=== PATIENT | female | born 1975 | race Hispanic/Latino ===

== ENCOUNTER 2018-12-07 06:02 | Inpatient (IN) ==
[2018-12-07] MEDS ORDERED: PROCARDIA ONE ×2 (06:23)
--- NOTE | 2018-12-07 06:29 | PROVIDER DOCUMENTATION ---
HPI-Female /OB/Breast - General Chief Complaint: OB-Active Labor Stated Complaint: LABOR PAIN Time Seen by Provider: 12/07/18 06:22 Source: reports: lap runner Allergies/Adverse Reactions: Patient Allergies Allergy/AdvReac Type Severity Reaction Status Date / Time No Known Allergies Allergy Verified 12/07/18 06:28 - History of Present Illness-Female /OB Nature of Presenting Problem: Patient presents with contractions and back pain. She is a term with no care. Location of complaint: reports: suprapubic Radiation: reports: back Quality of Pain: reports: cramping Severity in ED: reports: moderate Onset/Duration: reports: 1-3 hours ago Timing: reports: still present Vaginal Symptoms: reports: no symptoms Vaginal Bleeding Amount: None Urinary Symptoms: reports: no symptoms Leakage of Fluid: none Sexual intercourse history: reports: Not Active Associated Symptoms: reports: denies symptoms Similar Symptoms Previously?: No Recently seen or treated by another doctor?: No - LMP/ History : 3 Para: 2 CURRENT Problems: pre-eclampsia (?) PREVIOUS Problems: reports: none Contractions/Pelvic Pain: reports: moderate Review of Systems - Adult - REVIEW OF SYSTEMS - ADULT ROS:: limited per condition Constitutional: reports: no symptoms reported Eyes: reports: no symptoms reported Ears, Nose, Mouth & Throat: reports: no symptoms reported Cardiovascular: reports: no symptoms reported Respiratory: reports: no symptoms reported Gastrointestinal: reports: no symptoms reported Genitourinary: reports: no symptoms reported Musculoskeletal: reports: no symptoms reported Integumentary: reports: no symptoms reported Neurological: reports: no symptoms reported Psychiatric: reports: no symptoms reported Endocrine: reports: no symptoms reported Hematologic/Lymphatic: reports: no symptoms reported Allergic/Immunologic: reports: no symptoms reported Past History - Adult - PAST MEDICAL HISTORY-ADULT Review of Records: reports: Nursing Assessment Review Cardiovascular: reports: HTN Physical Exam-General - CONSTITUTIONAL General Appearance: appears well, alert, mild distress - EYES Eyes: PERRL/EOMI - HEAD, EARS, NOSE, MOUTH & THROAT HENMT: normocephalic/atraumatic - NECK Neck: non-tender - RESPIRATORY Respiratory: chest non-tender - CARDIOVASCULAR Cardiovascular: normal peripheral pulses - GASTROINTESTINAL (ABDOMEN) Abdominal Exam: normal bowel sounds, soft (gravid) - LYMPHATIC Lymphatic: no adenopathy - MUSCULOSKELETAL Back Exam: normal inspection Extremity: normal range of motion, non-tender Progress - PLAN OF CARE/RESULTS Progress/Plan/Lab Results: Vital Signs - 8 hr 12/07/18 06:10 Temperature 97.5 F L Pulse Rate 79 Respiratory Rate 20 Blood Pressure 193/92 O2 Sat by Pulse Oximetry 99 Orders Category Date Time Status Nifedipine [Procardia] Med 12/07/18 06:23 Once 10 mg .SEE ORDER NOW ONE - CONSULTS/PCP/HOSPITALIST Notification #1 *Consult/PCP/Hospitalist*: Kenia Time Discussed: 06:32 Reason/Comments: transfer to [employer] via ambulance Departure - Departure Date of Disposition Decision: 12/07/18 Time of Disposition Decision: 06:33 DIAGNOSIS: Active labor at term Disposition: [facility] 02 Certified Medical Emergency: Emergent Condition: Stable Referrals and Follow-Ups: None,PCP [Primary Care Provider] - - Critical Care Note This patient required my direct & personal management of CC.: No Attestation - Physician/ GIOVANY Attestation Patient care was provided by Advanced Practice Provider:: No The physician spent face to face time with patient:: Yes Advanced Practice Provider documentation review:: Supervising physician onsite and consulted in the evaluation and care of this patient. The physician did have a face to face encounter with the patient.
[2018-12-07 07:02] LABS: BASO# 0.02 X1000 (0.0-0.2); BASO% 0.2 % (0.0-0.8); EOS# 0.14 X1000 (0.0-0.7); EOS% 1.6 % (0.0-10.0); HEMOGLOBIN 12.5 g/dL (12.0-16.0); LYMPH# 2.59 X1000 (1.2-3.4); LYMPH% 28.9 % (20.5-51.1); MCH 27.1 PG (27-31); MCHC 33.8 g/dL (33-37); MCV 80.1 FL (81-99); MONO# 0.64 X1000 (0.11-0.59); MONO% 7.2 % (1.7-9.3); MPV 10.1 FL (7.4-10.4); NEUT# 5.56 X1000 (1.4-6.5); NEUT% 62.1 % (42.2-75.2); PLT 325 X1000 (130-400); RBC 4.62 XMIL (4.2-5.4); RDW 15.7 % (11.5-14.5); WBC 8.95 X1000 (4.8-10.8)
[2018-12-07] MEDS ORDERED: MAGNESIUM SULFATE 4 GM/S.W.I. 4 GM/100 ML IVPB ONE (07:16)
[2018-12-07] MEDS ORDERED: MAGNESIUM SULFATE 4 GM/S.W.I. 4 GM/100 ML IVPB IV ONE (07:17)
[2018-12-07] MEDS: LABETALOL IV ONE ×3 (07:20→08:12)
[2018-12-07] MEDS ORDERED: LR 500 ML IV ONE (07:21)
[2018-12-07] MEDS ORDERED: PEPCID PO ONE (07:21)
[2018-12-07] MEDS ORDERED: REGLAN PO ONE (07:21)
[2018-12-07] MEDS ORDERED: KEFZOL 1 GM/D5W 1 GM/50 ML IVPB IV PRN (07:21)
[2018-12-07] MEDS ORDERED: LR 1,000 ML IV SCH (07:30)
[2018-12-07] MEDS ORDERED: LABETALOL IV ONE ×2 (07:50→08:09)
[2018-12-07] MEDS: MAGNESIUM SULFATE 40 GM/S.W.I. 40 GM/1,000 ML IV.SOLN IV SCH (07:56)
[2018-12-07] MEDS ORDERED: BICITRA PO ONE (08:00)
[2018-12-07 08:06] LABS: RAPID HIV PRESUMPTIVE NEGATIVE; RPR NON-REACTIVE (NONREACTIVE); RUBELLA SCREEN IMMUNE (IMMUNE)
--- NOTE | 2018-12-07 08:10 | OB/GYN PROGRESS NOTE ---
Progress Note OB - . Patient Problems: Current Active Problems Problem Status Onset Pre-eclampsia added to pre-existing hypertension Acute History of 2 sections Acute Chronic hypertension Acute No care in current Acute Active labor at term Acute OB Progress Note: Vital Signs - 24 hr 12/07/18 06:10 12/07/18 06:42 Temperature 97.5 F L 97.5 F L Pulse Rate 79 68 Respiratory Rate 20 18 Blood Pressure 193/92 196/88 O2 Sat by Pulse Oximetry 99 99 Laboratory Results - last 24 hr 12/07/18 12/07/18 06:38 06:38 WBC 8.95 RBC 4.62 Hgb 12.5 Hct 37.0 MCV 80.1 L MCH 27.1 MCHC 33.8 RDW Std Deviation 15.7 H Plt Count 325 MPV 10.1 Immature Gran % (Auto) 0.0 Neut % (Auto) 62.1 Lymph % (Auto) 28.9 [place] % (Auto) 7.2 Eos % (Auto) 1.6 Baso % (Auto) 0.2 Immature Gran # (Auto) 0.00 Neut # (Auto) 5.56 Lymph # (Auto) 2.59 [place] # (Auto) 0.64 H Eos # (Auto) 0.14 Baso # (Auto) 0.02 Glucose 92 After short eval and US, Pts condition warrents delivery based on 36 wks, anhydramnios, elevated BPs. Will proceed w/ delivery due to two prior abdominal deliveries. See H/P.
[2018-12-07] MEDS ORDERED: BICITRA ONE (08:19)
--- NOTE | 2018-12-07 08:38 | HISTORY AND PHYSICAL ---
HISTORY OF PRESENT ILLNESS: The patient is a 43-year-old, 3, para 2 at 36 weeks and zero days by third trimester ultrasound performed on the day of admission. complicated by AMA status, no care, morbid obesity, and anhydramnios. She presented to the Emergency Room with elevated pressures and complaining of contraction activity. Her blood pressure in the Emergency Room was 192/94 and she was transferred to the OB Service where it was 201/98. She was given 3 doses of labetalol to bring her blood pressure down below a systolic of 160. An ultrasound performed at the bedside revealed 36 weeks and hydramnios. The patient is non-Ecuadorean speaking so history is variable. PREVIOUS MEDICAL HISTORY: Pertinent for chronic hypertension, dm ALLERGIES TO MEDICINES: None. PREVIOUS SURGICAL HISTORY: section times 2. FAMILY HISTORY: Noncontributory. REVIEW OF SYSTEMS: Positive for contractions and headaches. Negative for chest pain, shortness of breath, cough, runny nose, fever, or sore throat. PHYSICAL EXAMINATION: GENERAL: Well-developed, well-nourished, woman appearing her stated age LUNGS: unlabored breathing, normal rate. HEART: Regular rate and rhythm. ABDOMEN: Obese and gravid. EXTREMITIES: Without clubbing, cyanosis, or edema. REFLEXES: pettelar 2+ ASSESSMENT: A 43-year-old 3, para 2, at 36 weeks with 2 prior sections and preeclampsia with severe features complicated by chronic hypertension, DM and anhydramnios. heart tones w/min variability. PLAN: Magnesium neuro prophylaxis. Labetalol to maintain blood pressure systolic/diastolic to less than 160/110. Given the patient's gestational age of 36 weeks, the anhydramnios, and prior sections proceed with repeat section. heart tracing is occasional variability. Proceed with delivery. [facility]
[2018-12-07] MEDS ORDERED: PEPCID IV ONE (08:46)
[2018-12-07] MEDS ORDERED: SODIUM CHLORIDE 0.9% INJ ONE (08:46)
[2018-12-07 09:00] LABS: URINE SOURCE VOIDED
[2018-12-07 09:05] LABS: BILIRUBIN URINE NEGATIVE (NEGATIVE); BLOOD URINE 4+ (NEGATIVE); CLARITY VERY CLOUDY (CLEAR); COLOR YELLOW; GLUCOSE URINE NEGATIVE (NEGATIVE); KETONE URINE TRACE mg/dL (NEGATIVE); LEUKOCYTES URINE 1+ (NEGATIVE); NITRITE URINE NEGATIVE (NEGATIVE); PH URINE 6.5; SP GRAVITY URINE 1.015; UROBILINOGEN URINE 1 mg/dL
[2018-12-07] MEDS ORDERED: NEO-SYNEPHRINE ONE (09:10)
[2018-12-07] MEDS ORDERED: DURAMORPH ONE (09:10)
[2018-12-07 09:15] LABS: UR AMPHETAMINES QUAL NONE DETECTED (NONE DETECT); UR BARBITUATES QUAL NONE DETECTED (NONE DETECT); UR BENZODIAZEPIN QUAL NONE DETECTED (NONE DETECT); UR CANNABINOIDS QUAL NONE DETECTED (NONE DETECT); UR COCAINE QUAL NONE DETECTED (NONE DETECT); UR METHADONE QUAL NONE DETECTED (NONE DETECT); UR METHAMPHETAMINE QUAL NONE DETECTED (NONE DETECT); UR OPIATES QUAL NONE DETECTED (NONE DETECT); UR OXYCODONE QUAL NONE DETECTED (NONE DETECT); UR PCP QUAL NONE DETECTED (NONE DETECT); UR PROPOXYPHENE QUAL NONE DETECTED (NONE DETECT); UR TCA QUAL NONE DETECTED (NONE DETECT)
[2018-12-07] MEDS ORDERED: PITOCIN ONE ×3 (09:41)
[2018-12-07] MEDS ORDERED: DILAUDID ONE (09:43)
[2018-12-07] MEDS ORDERED: ZOFRAN ONE (09:51)
--- NOTE | 2018-12-07 10:00 | Diag Imaging Result Doc PS360 ---
EXAM: US OBS COMPLETE > 14 WKS HISTORY: no care increased bloodpressure TECHNIQUE: OB ultrasound COMPARISON: None. FINDINGS: There is an intrauterine with an estimated gestational age based on multiple measurements of 36 weeks zero days +/- 16 days. This would correspond with a date of delivery of 01/04/2019. heart rate is 153 bpm. Difficult survey due to decreased amniotic fluid. The placenta is anterior. Fetus is in somewhat transverse position although the head appears near the cervix. IMPRESSION: Late term with decreased amniotic fluid. Electronically signed by Ildefonso Donahue 12/07/2018 9:58 AM
[2018-12-07] MEDS ORDERED: NORCO-5 PO PRN (10:07)
[2018-12-07] MEDS ORDERED: M-M-R II VACCINE SUBQ ONE (10:07)
[2018-12-07] MEDS ORDERED: ATARAX PO PRN (10:07)
[2018-12-07] MEDS ORDERED: HYDROXYZINE IM PRN (10:07)
[2018-12-07] MEDS ORDERED: BOOSTRIX VACCINE IM ONE (10:07)
[2018-12-07] MEDS ORDERED: PITOCIN 20 UNITS/NS 20 UNITS/1,000 ML IV.SOLN IV ONE (10:07)
[2018-12-07] MEDS ORDERED: AMBIEN PO PRN (10:07)
[2018-12-07] MEDS ORDERED: DULCOLAX PR PRN (10:07)
[2018-12-07] MEDS ORDERED: MYLICON PO PRN (10:07)
[2018-12-07] MEDS ORDERED: PITOCIN IM PRN (10:07)
[2018-12-07] MEDS ORDERED: MORPHINE IV PRN (10:52)
--- NOTE | 2018-12-07 10:59 | OPERATIVE NOTE ---
PROCEDURE DATE : 12/07/2018 PROCEDURE PERFORMED: Low transverse section. ANESTHESIA: Spinal. PREOPERATIVE DIAGNOSES: 1. at 36 weeks. 2. Chronic hypertension. 3. Diabetes. 4. Preeclampsia with severe features, complicated by chronic hypertension. 5. Morbid obesity. 6. Category 2 tracing. 7. Anhydramnios. POSTOPERATIVE DIAGNOSES: 1. at 36 weeks. 2. Chronic hypertension. 3. Diabetes. 4. Preeclampsia with severe features, complicated by chronic hypertension. 5. Morbid obesity. 6. Category 2 tracing. 7. Anhydramnios. 8. Liveborn delivered via repeat section. 9. Meconium stained fluid. ESTIMATED BLOOD LOSS: 800 mL. COMPLICATIONS: None. FINDINGS: Liveborn in cephalic position, Apgars of 7 and 8, weight 6 pounds and 4. Thick meconium stained minimal fluid. DESCRIPTION OF PROCEDURE: After risks, complications and benefits were explained to the patient through an historical interpreter, the patient was taken to the operating room with fluids running. Then 2 g of Ancef was infused. The patient underwent spinal anesthesia. She was then prepped and draped in the supine position with a left lateral tilt. A low transverse incision was made with the knife overlying the 2 previous skin incisions. The knife was used to carry the incision down to the underlying fascia. The fascia was dissected laterally with Jaime scissors and minimally dissected off the rectus muscles which were wide apart due to fascial scar tissue. The peritoneum was entered bluntly and stretched by blunt dissection. Bladder blade was placed, and the lower uterine segment was visualized with the assistance of a Hooper retractor. A low transverse incision was made with the knife and carried out laterally by blunt dissection, and the membranes were ruptured with an Allis clamp. The 's head was mobilized at the incision. A Kiwi suction was placed and the delivered without difficulty or complication. The cord was clamped x2 and cut, and the was handed to the awaiting pediatric resuscitation team. Cord blood was obtained. Cord gases were obtained. The placenta delivered intact with a 3-vessel cord. The uterus was cleared of all clot and debris, and the uterine incision was closed with a single layer of #1 Monocryl in a running, locked fashion from the corners to the midline and tied in the midline. The uterine incision was irrigated completely and found to be completely hemostatic. The tags were cut from the corners, and the rectus muscles and peritoneum were closed en bloc along the midline with 2-0 chromic and assistance of a ribbon. The fascia was then closed with 0 PDS. The underlying tissue was irrigated and found to be completely hemostatic. The thick subcutaneous tissue was closed with 2-0 plain, and the skin was closed with skin clips. Sponge, lap and needle counts were correct x3. The patient was taken to the recovery room in stable condition. [facility]
[2018-12-07] MEDS ORDERED: ZOFRAN ODT PO PRN (11:00)
[2018-12-07] MEDS ORDERED: BENADRYL IV PRN (11:00)
[2018-12-07] MEDS ORDERED: TYLENOL PO SCH (11:00)
[2018-12-07] MEDS ORDERED: NARCAN INJ PRN (11:00)
[2018-12-07] MEDS ORDERED: ZOFRAN IV PRN ×2 (11:00)
[2018-12-07] MEDS: MYLICON PO SCH ×3 (12:49→20:53)
[2018-12-07] MEDS ORDERED: MOTRIN PO SCH (13:00)
[2018-12-07] MEDS: TYLENOL PO SCH ×2 (17:23→23:55)
--- NOTE | 2018-12-07 19:16 | OB/GYN PROGRESS NOTE ---
Progress Note OB - . Patient Problems: Current Active Problems Problem Status Onset Pre-eclampsia added to pre-existing hypertension Acute History of 2 sections Acute Chronic hypertension Acute No care in current Acute Active labor at term Acute OB Progress Note: Vital Signs - 24 hr 12/07/18 06:10 12/07/18 06:42 12/07/18 10:10 Temperature 97.5 F L 97.5 F L 97.3 F L Pulse Rate 79 68 58 L Respiratory Rate 20 18 20 Blood Pressure 193/92 196/88 Blood Pressure [Left Arm] 103/57 O2 Sat by Pulse Oximetry 99 99 91 L 12/07/18 10:20 12/07/18 10:30 12/07/18 10:40 Temperature Pulse Rate 60 62 58 L Respiratory Rate 20 20 20 Blood Pressure Blood Pressure [Left Arm] 90/52 95/50 101/59 O2 Sat by Pulse Oximetry 99 99 100 12/07/18 10:50 12/07/18 11:00 12/07/18 11:10 Temperature Pulse Rate 57 L 67 60 Respiratory Rate 20 20 20 Blood Pressure 102/65 Blood Pressure [Left Arm] 93/58 101/63 102/65 O2 Sat by Pulse Oximetry 100 99 100 12/07/18 14:37 12/07/18 15:34 12/07/18 17:54 Temperature 97.4 F L 97.6 F 98 F Pulse Rate 75 96 H 83 Respiratory Rate 20 20 16 Blood Pressure 109/57 125/71 137/68 Blood Pressure [Left Arm] O2 Sat by Pulse Oximetry 96 97 96 12/07/18 18:47 Temperature Pulse Rate 82 Respiratory Rate 20 Blood Pressure 133/72 Blood Pressure [Left Arm] O2 Sat by Pulse Oximetry 98 Laboratory Results - last 24 hr 12/07/18 12/07/18 12/07/18 06:38 06:38 06:38 WBC 8.95 RBC 4.62 Hgb 12.5 Hct 37.0 MCV 80.1 L MCH 27.1 MCHC 33.8 RDW Std Deviation 15.7 H Plt Count 325 MPV 10.1 Immature Gran % (Auto) 0.0 Neut % (Auto) 62.1 Lymph % (Auto) 28.9 [place] % (Auto) 7.2 Eos % (Auto) 1.6 Baso % (Auto) 0.2 Immature Gran # (Auto) 0.00 Neut # (Auto) 5.56 Lymph # (Auto) 2.59 [place] # (Auto) 0.64 H Eos # (Auto) 0.14 Baso # (Auto) 0.02 Glucose 92 Urine Source Urine Color Urine Clarity Urine pH Ur Specific [place] Urine Protein Urine Ketones Urine Blood Urine Nitrite Urine Bilirubin Urine Urobilinogen Urine WBC Urine Glucose Urine Opiates Screen Ur Oxycodone Screen Urine Methadone Screen U Propoxyphene Qual Ur Barbituates Screen Ur Tricyclics Screen Ur Phencyclidine Scrn Ur Amphetamines Screen U Methamphetamines Scrn U Benzodiazepines Scrn Urine Cocaine Screen U Cannabinoids Screen RPR NON-REACTIVE HIV 1&2 Antibody Rapid PRESUMPTIVE NEGATIVE Rubella Immunity Screen IMMUNE Blood Type Antibody Screen 12/07/18 12/07/18 12/07/18 07:00 07:00 07:42 WBC RBC Hgb Hct MCV MCH MCHC RDW Std Deviation Plt Count MPV Immature Gran % (Auto) Neut % (Auto) Lymph % (Auto) [place] % (Auto) Eos % (Auto) Baso % (Auto) Immature Gran # (Auto) Neut # (Auto) Lymph # (Auto) [place] # (Auto) Eos # (Auto) Baso # (Auto) Glucose Urine Source VOIDED Urine Color YELLOW Urine Clarity VERY CLOUDY A Urine pH 6.5 Ur Specific [place] 1.015 Urine Protein 3+(500 mg/dL) A Urine Ketones TRACE Urine Blood 4+ Urine Nitrite NEGATIVE Urine Bilirubin NEGATIVE Urine Urobilinogen 1 Urine WBC 1+ A Urine Glucose NEGATIVE Urine Opiates Screen NONE DETECTED Ur Oxycodone Screen NONE DETECTED Urine Methadone Screen NONE DETECTED U Propoxyphene Qual NONE DETECTED Ur Barbituates Screen NONE DETECTED Ur Tricyclics Screen NONE DETECTED Ur Phencyclidine Scrn NONE DETECTED Ur Amphetamines Screen NONE DETECTED U Methamphetamines Scrn NONE DETECTED U Benzodiazepines Scrn NONE DETECTED Urine Cocaine Screen NONE DETECTED U Cannabinoids Screen NONE DETECTED RPR HIV 1&2 Antibody Rapid Rubella Immunity Screen Blood Type O POSITIVE Antibody Screen NEGATIVE NOS note The pt c/o pain but it is well controlled with medication. CD done this morning due to oligo and severe preeclampsia. Her BP has been normal since delivery. She is currently on 2 grams Magnessium Sulfate. No GONZALEZ/vision changes/CP/SOB/RUQ pain Vitals as above Gen: AAOx3 NAD CV: RRR no g/m/r Lungs: CTAB no w/r/r Abd: +BS soft yasmin tender incision with bandage covering no strikethrough Ext: no c/c/e labs as above A: POD#0 s/o RLTCS severe preeclampsia oligo NPC Hungarian speaking only Type 2 DM vs GDM P: Continue Magnesium for 24hours post delivery Start Accuchecks fasting and 2 hr pp. If abnormal will start back on Metformin.
[2018-12-07] MEDS: PERICOLACE PO SCH (20:52)
[2018-12-07] MEDS: MOTRIN PO SCH (20:53)
[2018-12-08] MEDS: PITOCIN 10 UNITS/NS 1,000 ML IV SCH ×2 (00:04→08:51)
[2018-12-08] MEDS: TYLENOL PO SCH ×2 (05:02→11:06)
[2018-12-08] MEDS: MOTRIN PO SCH ×3 (05:02→21:18)
[2018-12-08] MEDS: MAGNESIUM SULFATE 40 GM/S.W.I. 40 GM/1,000 ML IV.SOLN IV SCH (05:05)
[2018-12-08 05:34] LABS: BASO# 0.02 X1000 (0.0-0.2); BASO% 0.2 % (0.0-0.8); EOS# 0.09 X1000 (0.0-0.7); EOS% 0.9 % (0.0-10.0); HEMATOCRIT 32.4 % (37.0-47.0); HEMOGLOBIN 10.7 g/dL (12.0-16.0); IMM GRAN# 0.01 X1000 (0.0-0.04); IMM GRAN% 0.1 % (0.0-0.5); LYMPH# 2.32 X1000 (1.2-3.4); LYMPH% 22.9 % (20.5-51.1); MCH 26.6 PG (27-31); MCV 80.6 FL (81-99); MONO# 0.54 X1000 (0.11-0.59); MONO% 5.3 % (1.7-9.3); MPV 10.1 FL (7.4-10.4); NEUT# 7.13 X1000 (1.4-6.5); NEUT% 70.6 % (42.2-75.2); PLT 315 X1000 (130-400); RBC 4.02 XMIL (4.2-5.4); RDW 15.7 % (11.5-14.5); WBC 10.11 X1000 (4.8-10.8)
--- NOTE | 2018-12-08 07:33 | OB/GYN PROGRESS NOTE ---
Progress Note OB - . Patient Problems: Current Active Problems Problem Status Onset Pre-eclampsia added to pre-existing hypertension Acute History of 2 sections Acute Chronic hypertension Acute No care in current Acute Active labor at term Acute OB Progress Note: Vital Signs - 24 hr 12/07/18 10:10 12/07/18 10:20 12/07/18 10:30 Temperature 97.3 F L Pulse Rate 58 L 60 62 Respiratory Rate 20 20 20 Blood Pressure Blood Pressure [Left Arm] 103/57 90/52 95/50 O2 Sat by Pulse Oximetry 91 L 99 99 12/07/18 10:40 12/07/18 10:50 12/07/18 11:00 Temperature Pulse Rate 58 L 57 L 67 Respiratory Rate 20 20 20 Blood Pressure Blood Pressure [Left Arm] 101/59 93/58 101/63 O2 Sat by Pulse Oximetry 100 100 99 12/07/18 11:10 12/07/18 14:37 12/07/18 15:34 Temperature 97.4 F L 97.6 F Pulse Rate 60 75 96 H Respiratory Rate 20 20 20 Blood Pressure 102/65 109/57 125/71 Blood Pressure [Left Arm] 102/65 O2 Sat by Pulse Oximetry 100 96 97 12/07/18 16:40 12/07/18 17:54 12/07/18 18:47 Temperature 98 F Pulse Rate 83 83 82 Respiratory Rate 16 16 20 Blood Pressure 128/61 137/68 133/72 Blood Pressure [Left Arm] O2 Sat by Pulse Oximetry 96 96 98 12/07/18 20:00 12/07/18 21:50 12/07/18 22:00 Temperature 97.2 F L Pulse Rate 84 77 Respiratory Rate 18 18 Blood Pressure 137/76 145/73 Blood Pressure [Left Arm] O2 Sat by Pulse Oximetry 97 98 97 12/08/18 00:00 12/08/18 02:00 12/08/18 04:00 Temperature 96.5 F L Pulse Rate 82 75 77 Respiratory Rate 18 18 18 Blood Pressure 151/78 143/72 127/69 Blood Pressure [Left Arm] O2 Sat by Pulse Oximetry 97 96 95 12/08/18 06:00 Temperature Pulse Rate 74 Respiratory Rate 18 Blood Pressure 141/73 Blood Pressure [Left Arm] O2 Sat by Pulse Oximetry 96 Laboratory Results - last 24 hr 12/07/18 12/07/18 12/07/18 06:38 07:00 07:00 WBC RBC Hgb Hct MCV MCH MCHC RDW Std Deviation Plt Count MPV Immature Gran % (Auto) Neut % (Auto) Lymph % (Auto) [place] % (Auto) Eos % (Auto) Baso % (Auto) Immature Gran # (Auto) Neut # (Auto) Lymph # (Auto) [place] # (Auto) Eos # (Auto) Baso # (Auto) POC Glucose Urine Source VOIDED Urine Color YELLOW Urine Clarity VERY CLOUDY A Urine pH 6.5 Ur Specific [place] 1.015 Urine Protein 3+(500 mg/dL) A Urine Ketones TRACE Urine Blood 4+ Urine Nitrite NEGATIVE Urine Bilirubin NEGATIVE Urine Urobilinogen 1 Urine WBC 1+ A Urine Glucose NEGATIVE Urine Opiates Screen NONE DETECTED Ur Oxycodone Screen NONE DETECTED Urine Methadone Screen NONE DETECTED U Propoxyphene Qual NONE DETECTED Ur Barbituates Screen NONE DETECTED Ur Tricyclics Screen NONE DETECTED Ur Phencyclidine Scrn NONE DETECTED Ur Amphetamines Screen NONE DETECTED U Methamphetamines Scrn NONE DETECTED U Benzodiazepines Scrn NONE DETECTED Urine Cocaine Screen NONE DETECTED U Cannabinoids Screen NONE DETECTED RPR NON-REACTIVE HIV 1&2 Antibody Rapid PRESUMPTIVE NEGATIVE Rubella Immunity Screen IMMUNE Blood Type Antibody Screen 12/07/18 12/07/18 12/08/18 07:42 23:59 05:05 WBC 10.11 RBC 4.02 L Hgb 10.7 L Hct 32.4 L MCV 80.6 L MCH 26.6 L MCHC 33.0 RDW Std Deviation 15.7 H Plt Count 315 MPV 10.1 Immature Gran % (Auto) 0.1 Neut % (Auto) 70.6 Lymph % (Auto) 22.9 [place] % (Auto) 5.3 Eos % (Auto) 0.9 Baso % (Auto) 0.2 Immature Gran # (Auto) 0.01 Neut # (Auto) 7.13 H Lymph # (Auto) 2.32 [place] # (Auto) 0.54 Eos # (Auto) 0.09 Baso # (Auto) 0.02 POC Glucose 109 H Urine Source Urine Color Urine Clarity Urine pH Ur Specific [place] Urine Protein Urine Ketones Urine Blood Urine Nitrite Urine Bilirubin Urine Urobilinogen Urine WBC Urine Glucose Urine Opiates Screen Ur Oxycodone Screen Urine Methadone Screen U Propoxyphene Qual Ur Barbituates Screen Ur Tricyclics Screen Ur Phencyclidine Scrn Ur Amphetamines Screen U Methamphetamines Scrn U Benzodiazepines Scrn Urine Cocaine Screen U Cannabinoids Screen RPR HIV 1&2 Antibody Rapid Rubella Immunity Screen Blood Type O POSITIVE Antibody Screen NEGATIVE Post op day 1 Vssaf, bp creeping up on 2g magnesium abd s/nt dressing c/d ext-cce/ scds in place HGB 10.7 live clears, reg today mag off today ambulate today baby w/TOF beng xferred to [facility] tomorrow if stable.
[2018-12-08] MEDS: LABETALOL IV ONE (08:52)
[2018-12-08] MEDS: MYLICON PO SCH ×4 (09:57→21:17)
[2018-12-08] MEDS: TRANDATE PO SCH ×2 (09:57→21:18)
[2018-12-08] MEDS: NORCO-10 PO PRN (09:57)
[2018-12-08] MEDS ORDERED: LR 1,000 ML IV SCH (10:07)
[2018-12-08] MEDS ORDERED: GLUCOPHAGE PO ONE (11:50)
[2018-12-08] MEDS: PERCOCET-5 PO PRN ×2 (17:45→21:18)
[2018-12-08] MEDS: GLUCOPHAGE PO SCH (17:45)
[2018-12-08 18:02] LABS: HIV ANTIBODY SCREEN SEE COMMENTS
--- NOTE | 2018-12-08 19:25 | OB/GYN PROGRESS NOTE ---
Progress Note OB - . Patient Problems: Current Active Problems Problem Status Onset Pre-eclampsia added to pre-existing hypertension Acute History of 2 sections Acute Chronic hypertension Acute No care in current Acute Active labor at term Acute OB Progress Note: Vital Signs - 24 hr 12/07/18 20:00 12/07/18 21:50 12/07/18 22:00 Temperature 97.2 F L Pulse Rate 84 77 Respiratory Rate 18 18 Blood Pressure 137/76 145/73 O2 Sat by Pulse Oximetry 97 98 97 12/08/18 00:00 12/08/18 02:00 12/08/18 04:00 Temperature 96.5 F L Pulse Rate 82 75 77 Respiratory Rate 18 18 18 Blood Pressure 151/78 143/72 127/69 O2 Sat by Pulse Oximetry 97 96 95 12/08/18 06:00 12/08/18 07:30 12/08/18 08:15 Temperature 96.5 F L Pulse Rate 74 75 76 Respiratory Rate 18 16 16 Blood Pressure 141/73 145/78 O2 Sat by Pulse Oximetry 96 97 96 12/08/18 16:30 12/08/18 17:47 Temperature 97 F L Pulse Rate 85 Respiratory Rate 116 H Blood Pressure 133/70 O2 Sat by Pulse Oximetry 98 98 Laboratory Results - last 24 hr 12/07/18 12/07/18 12/08/18 08:06 23:59 05:05 WBC 10.11 RBC 4.02 L Hgb 10.7 L Hct 32.4 L MCV 80.6 L MCH 26.6 L MCHC 33.0 RDW Std Deviation 15.7 H Plt Count 315 MPV 10.1 Immature Gran % (Auto) 0.1 Neut % (Auto) 70.6 Lymph % (Auto) 22.9 [place] % (Auto) 5.3 Eos % (Auto) 0.9 Baso % (Auto) 0.2 Immature Gran # (Auto) 0.01 Neut # (Auto) 7.13 H Lymph # (Auto) 2.32 [place] # (Auto) 0.54 Eos # (Auto) 0.09 Baso # (Auto) 0.02 POC Glucose 109 H HIV 1&2 Antibody Screen SEE COMMENTS 12/08/18 12/08/18 11:11 14:13 WBC RBC Hgb Hct MCV MCH MCHC RDW Std Deviation Plt Count MPV Immature Gran % (Auto) Neut % (Auto) Lymph % (Auto) [place] % (Auto) Eos % (Auto) Baso % (Auto) Immature Gran # (Auto) Neut # (Auto) Lymph # (Auto) [place] # (Auto) Eos # (Auto) Baso # (Auto) POC Glucose 199 H D 121 H HIV 1&2 Antibody Screen Pt doing well. Pain well controlled with meds. Pt restarted on Metformin and Labetalol. BP 130/70 baby transferred today to [place] from [place] due to TOF, and possible T21 VSSAF Gen: AAOx3 NAD CV: RRR no g/m/r Lungs: CTAB no w/r/r Abd: +bs soft yasmin tender incision c/d/i wih deepak Ext: no c/c/ 1+edema BG 199, 121 A: POD#1 s/p RLTCS severe preeclampsia Type 2 DM P: Possible D/C in AM Staple removal on Sunday in the office
[2018-12-08] MEDS: PERICOLACE PO SCH (21:17)
[2018-12-09] MEDS: MOTRIN PO SCH ×2 (05:45→15:43)
[2018-12-09 07:31] VITALS: BP 146/66
[2018-12-09] MEDS: GLUCOPHAGE PO SCH (08:02)
--- NOTE | 2018-12-09 09:05 | DISCHARGE SUMMARY ---
ADMISSION DATE: 12/07/2018 DISCHARGE DATE: 12/09/2018 ADMITTING DIAGNOSES: 1. Term . 2. Two prior sections. 3. Chronic hypertension, untreated. 4. Diabetes mellitus, untreated. 5. Severe preeclampsia complicated by chronic hypertension. 6. Labor. 7. Anhydramnios. 8. No care. DISCHARGE DIAGNOSES: 1. Term . 2. Two prior sections. 3. Chronic hypertension, untreated. 4. Diabetes mellitus, untreated. 5. Severe preeclampsia complicated by chronic hypertension. 6. Labor. 7. Anhydramnios. 8. No care. 9. Liveborn infant delivered via repeat section. 10. Magnesium neuroprophylaxis. BRIEF HISTORY AND HOSPITAL COURSE: The patient is a 43-year-old, 3, para 2 now 3, who was admitted at 36 weeks gestation with severe hypertension and contraction activity, with 2 prior sections. She was diagnosed with preeclampsia with severe features complicated by chronic hypertension. She was treated with magnesium neuroprophylaxis. Ultrasound generating gestational age of 36 weeks and anhydramnios, and followed by urgent section. Please see the separate operative note. Her postoperative course was uncomplicated. Initially, her blood pressures resolved spontaneously post surgery and her initial blood sugar was 104 fasting. However, on hospital day #1, day #1, the magnesium neuroprophylaxis was discontinued. She had postprandial blood sugar in the 190s and she was started on metformin 1000 b.i.d. which she was supposed to be on prior to admission. Also started on labetalol 100 b.i.d. as her blood pressure was starting to creep up. Her baby was shipped to [place], then to [place] for tetralogy of [place]. On hospital day #2, day #2, the patient was anxious to see her baby and was discharged home for early discharge with adequate blood pressures and adequate blood sugar control, and adequate pain management. Her vital signs were stable. She was afebrile. She was ambulating, voiding, tolerating a regular diet. Upon discharge, she was asked to follow up in a week. Call the office for pain, fever greater than 100.4, abnormal uterine bleeding, or headache. She was given a prescription for labetalol, metformin, and Percocet. Follow up in 1 week. Her incision was clean, dry, intact, and discharged to follow up in a week.
[2018-12-09] MEDS: TRANDATE PO SCH (09:20)
[2018-12-09] MEDS: MYLICON PO SCH ×2 (09:21→15:43)
[2018-12-09 09:42] LABS: HEPATITIS B SURFACE ANTIGEN SEE COMMENTS
[2018-12-09] MEDS: NORCO-10 PO PRN (11:07)
[2018-12-09] MEDS ORDERED: AMPICILLIN ONE (11:34)
[2018-12-09] MEDS ORDERED: LR 0 ML ONE (11:34)
[2018-12-09] MEDS ORDERED: NS ONE (11:34)
[2018-12-09] MEDS ORDERED: PITOCIN 30 UNITS/NS 30 UNIT/500 ML IV.SOLN ONE (11:34)
== END 2018-12-09 13:00 | disposition home or self-care (01) | DRG 786 ==
LOC: ED 06:02 → P.OPLD 06:56 → P.LD 06:59
PROVIDERS: ADMIT Obstetrics & Gynecology; ATTEND Obstetrics & Gynecology